=== PATIENT | female | born 1935 | race Caucasian/White ===

== ENCOUNTER 2019-02-17 08:30 | Day surgery (SDC) | payer MEDICARE, BC ==
[2019-02-17 09:04] LABS: Mean Platelet Volume 12.3
[2019-02-17 09:06] LABS: INR 0.9 (<1.2); Prothrombin Time 10.2 sec (9.0-12.0)
[2019-02-17 09:22] LABS: Platelet Count 37 k/uL (150-450)
[2019-02-17 10:05] VITALS: TEMP 97.6
--- NOTE | 2019-02-17 11:07 | US ---
ULTRASOUND GUIDED FNA THYROID BIOPSY: CLINICAL HISTORY: Left neck lymphadenopathy FINDINGS: The procedure was explained to the patient. The risks, complications, benefits and alternatives were discussed and any questions were answered. Informed consent was obtained. Patient was placed supin e on the ultrasound table and prepped and draped in the usual sterile fashion. Utilizing a 18-gauge core biopsy needle, five passes were made into the requested left neck lymph node. Patient was stable throughout the procedure. Pathology is pending. Note is made the patient had a lo w platelet count and received intravenous platelets before, during and after the procedure All elements of maximal barrier technique were utilized. IMPRESSION: 1. Successful ultrasound guided biopsy left neck lymphadenopathy.
[2019-02-17 11:35] VITALS: RESP 18
[2019-02-17 11:47] VITALS: BP 147/75; PULSE 67
== END 2019-02-17 11:51 | disposition home or self-care (01) ==
LOC: RADPROMAIN 08:30
PROVIDERS: ATTEND Internal Medicine Hematology & Oncology
DX: C91.10 Chronic lymphocytic leukemia of B-cell type not having achieved remission (principal); Z88.4 Allergy status to anesthetic agent
CPT/HCPCS: 88305; 85049; 85610; 88342; 88341; 76942; 38505; P9037

== ENCOUNTER → 2019-02-22 | Outpatient (CLI) | payer MEDICARE, BC ==
--- NOTE | 2019-02-22 11:35 | CT ---
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 CT DLP: 967mGycm Automated Exposure Control for Dose Reduction was Utilized. CONTRAST: CT scan of the abdomen and pelvis is performed with IV Contrast, patient injected with 100 ml mL of I sovue 300. COMPARISON: None. FINDINGS: LUNG BASES: There is 10 x 9 mm soft tissue nodule lower right thoracic subcutaneous fat on axial imag e 6 could reflect leukemia involvement. LIVER/GB: No significant abnormality is appreciated. PANCREAS: No significant abnormality is seen. SPLEEN: No significant abnormality is seen. ADRENALS: No significant abnormality is seen. KIDNEYS: There is symmetric cortical medullary uptake and excretion from both kidneys with mild bilat eral pyelocaliectasis likely from mass effect from adenopathy along course of ureters. BOWEL: No significant abnormality is seen. UTERUS/ADNEXA: No gross abnormality seen. LYMPH NODES: There are multiple enlarged lymph nodes throughout the abdomen and pelvis extending to b ilateral groin region predominantly in the retroperitoneum with some mesenteric involvement also iden tified. Some are confluent in appearance in both difficult to accurately measure. There is elevation of anterior displacement of the distal abdominal aorta before bifurcation. For reference left periaor tic lymph node measures 3.5 x 2.7 cm axial image 44. For reference left groin lymph node measures 2.2 x 1.5 cm axial image 80. For reference right external iliac chain lymph node measures 4.1 x 2.5 cm i mage 75. OSSEOUS STRUCTURES: Moderate multilevel spurring in the thoracolumbar spine. Posterior disc herniatio n effaces the anterior thecal sac L5-S1 level sagittal image 42. Facet arthropathy lower lumbar level s. Moderate to severe narrowing of both hip joints. OTHER: Mild to moderate calcified plaque of the aorta extends into branch vessels. IMPRESSION: Adenopathy or disease involvement below the diaphragm is present. No hepatosplenomegaly.
== END | disposition home or self-care (01) ==
LOC: RADCTMAIN 07:03
PROVIDERS: ATTEND Internal Medicine Hematology & Oncology
DX: C91.10 Chronic lymphocytic leukemia of B-cell type not having achieved remission (principal); Z88.4 Allergy status to anesthetic agent
CPT/HCPCS: 82565; 84520; 74177; 36415; Q9967

== ENCOUNTER 2021-12-17 15:00 | Emergency (ER) | payer MEDICARE, BC ==
[2021-12-17] MEDS ORDERED: ACETAMINOPHEN TAB 500 MG TAB PO STA (15:19)
--- NOTE | 2021-12-17 15:41 | XR ---
EXAMINATION TYPE: XR chest 2V DATE OF EXAM: 12/17/2021 COMPARISON: NONE HISTORY: Shortness of breath TECHNIQUE: Frontal and lateral views of the chest are obtained. FINDINGS: Scattered senescent parenchymal changes noted. Hyperinflation compatible with COPD. Reticulonodular prominence at the lung bases may reflect atypical pneumonia. Correlate clinically. Heart size is stable. Mediastinal structures are stable and grossly unremarkable. No evidence for hilar prominence. Degenerative changes dorsal spine. IMPRESSION: 1. Reticulonodular prominence at the lung bases may reflect atypical pneumonia. Correlate clinically.
[2021-12-17] MEDS ORDERED: SODIUM CHLORIDE 0.9% 500 ML 500 ML IV STA (15:49)
--- NOTE | 2021-12-17 16:10 | ED ---
General Adult HPI - General Chief complaint: Upper Respiratory Infection Stated complaint: Recieved Antibodies Fever Time Seen by Provider: 12/17/21 15:48 Source: patient Mode of arrival: wheelchair Limitations: no limitations - History of Present Illness Initial comments: Dictation was produced using [employer] dictation software. please excuse any gr ammatical, word or spelling errors. Chief Complaint: 86-year-old female presents emergency department for concerns of bacterial pneumonia History of Present Illness: Is 13-year-old female she was sent in from the infusion center just prior to arrival. Patient was at the infusion center receiving monoclonal antibodies to treat COVID-19. Patient's been symptomatic of COVID-19 for the last 4 days. She had a fever around the time the infusion. She was told by the infusion nurse to come to the ER to be evaluated for bacterial pneumonia. Patient states she's been having fevers, sore throat. She's been having coughing with production of yellow sputum. Patient denies any shortness of breath. She did receive her vaccines series with Covid booster. The ROS documented in this emergency department record has been reviewed and confirmed by me. Those systems with pertinent positive or negative responses have been documented in the HPI. All other systems are other negative and/or noncontributory. PHYSICAL EXAM: General Impression: Alert and oriented x3, not in acute distress HEENT: Normocephalic atraumatic, extra-ocular movements intact, pupils equal and reactive to light bilaterally, mucous membranes moist. Cardiovascular: Heart regular rate and rhythm Chest: Able to complete full sentences, no retractions, no tachypnea Abdomen: abdomen soft, non-tender, non-distended, no organomegaly Musculoskeletal: Pulses present and equal in all extremities, no peripheral e dora Motor: no focal deficits noted Neurological: CN II-XII grossly intact, no focal motor or sensory deficits noted Skin: Intact with no visualized rashes Psych: Normal affect and mood ED course: 86-year-old well-appearing female presents to the emergency department for concerns of bacterial pneumonia. She was sent in from infusion center to be evaluated. Vital signs upon arrival shows temperature 12.5, heart rate 1:30, rest of vital signs within acceptable limits. Patient's history of atrial fibrillation. Medications reviewed she is on rate controlling medications and and a coagulation medications. Laboratory evaluation obtained. Leukopenia of 2.9. No old labs for comparison. Coag panel is negative. Metabolic panel shows sodium 1:30. No lactic acidosis. Metabolic panel is otherwise unremarkable. Chest x-ray shows reticular nodular prominence concerning for atypical pneumonia. Patient observed in the emergency department for 2 hours. She is reevaluated bedside at 5:20 PM finally stable medical condition. Patient given Zithromax for very slight concern of superimposed bacterial pneumonia. Patient has multiple risk factors. Trial of antibiotics benefits outweigh the risk. Patient is agreeable for discharge with return precautions. Patient has an ap pointment with her oncologist in the near future. - Related Data Home Medications Medication Instructions Recorded Confirmed Calcium Carbonate [Calcium] 1 tab PO BID 02/09/19 12/17/21 Cholecalciferol [Vitamin D3 (25 1 tab PO DAILY 02/09/19 12/17/21 Mcg = 1000 Iu)] Fluticasone Propionate [Flonase 1 spray EA NOSTRIL DAILY PRN 02/09/19 12/17/21 Allergy Relief] Mometasone Inhalr 220 Mcg/Puff 1 puff INHALATION BID PRN 02/09/19 12/17/21 [Asmanex] Montelukast [Singulair] 10 mg PO DAILY 02/09/19 12/17/21 Pravastatin Sodium [Pravachol] 20 mg PO HS 02/09/19 12/17/21 Travoprost [Travatan Z 0.004%] 1 drop BOTH EYES DAILY 02/09/19 12/17/21 Acalabrutinib [Calquence] 100 mg PO DAILY 12/17/21 12/17/21 Acyclovir 400 mg PO BID 12/17/21 12/17/21 Albuterol Inhaler [Ventolin Hfa 1 puff INHALATION RT-TID PRN 12/17/21 12/17/21 Inhaler] Apixaban [Eliquis] 2.5 mg PO BID 12/17/21 12/17/21 Diltiazem 180 mg PO DAILY 12/17/21 12/17/21 Famotidine 40 mg PO HS 12/17/21 12/17/21 Magnesium 250 mg PO DAILY 12/17/21 12/17/21 Oxybutynin Chloride 5 mg PO DAILY 12/17/21 12/17/21 Tamsulosin HCl [Flomax] 0.4 mg PO DAILY 12/17/21 12/17/21 Previous Rx's Medication Instructions Recorded Azithromycin [Zithromax Z-pack] 0 mg PO DIRECTED #6 tab 12/17/21 Allergies Allergy/AdvReac Type Severity Reaction Status Date / Time amoxicillin AdvReac Rash/Hives Verified 12/17/21 15:17 novacaine AdvReac Unknown Uncoded 12/17/21 15:17 Review of Systems ROS Statement: Those systems with pertinent positive or pertinent negative responses have been documented in the HPI. ROS Other: All systems not noted in ROS Statement are negative. Past Medical History Past Medical History: Atrial Fibrillation, Cancer, COPD Additional Past Medical History / Comment(s): CLL/glaucoma History of Any Multi-Drug Resistant Organisms: None Reported Past Surgical History: Adenoidectomy, Orthopedic Surgery, Tonsillectomy Additional Past Surgical History / Comment(s): rt rotator cuff repair/part lt knee Past Anesthesia/Blood Transfusion Reactions: No Reported Reaction Past Psychological History: No Psychological Hx Reported Smoking Status: Never smoker Past Alcohol Use History: None Reported Past Drug Use History: None Reported General Exam Limitations: no limitations Course Vital Signs 12/17/21 12/17/21 12/17/21 15:12 16:22 17:28 Temperature 102.5 F H 101.6 F H 98.2 F Pulse Rate 130 H 110 H 104 H Respiratory 20 18 16 Rate Blood Pressure 103/67 104/58 123/63 O2 Sat by Pulse 95 93 L 95 Oximetry Medical Decision Making - Lab Data Result diagrams: 12/17/21 16:21 12/17/21 16:21 Lab Results 12/17/21 12/17/21 12/17/21 Range/Units 16:21 16:21 16:21 WBC 2.9 L (3.8-10.6) k/uL RBC 4.06 (3.80-5.40) m/uL Hgb 13.0 (11.4-16.0) gm/dL Hct 38.4 (34.0-46.0) % MCV 94.7 (80.0-100.0) fL MCH 32.0 (25.0-35.0) pg MCHC 33.9 (31.0-37.0) g/dL RDW 13.1 (11.5-15.5) % Plt Count 106 L (150-450) k/uL MPV 9.3 Neutrophils % (Manual) 74 % Band Neuts % (Manual) 1 % Lymphocytes % (Manual) 15 % Monocytes % (Manual) 10 % Neutrophils # (Manual) 2.10 (1.3-7.7) k/uL Lymphocytes # (Manual) 0.44 L (1.0-4.8) k/uL Monocytes # (Manual) 0.29 (0-1.0) k/uL Nucleated RBCs 0 (0-0) /100 WBC Manual Slide Review Performed RBC Morphology Normal PT 10.5 (9.0-12.0) sec INR 1.0 (<1.2) APTT 27.1 (22.0-30.0) sec Sodium 130 L (137-145) mmol/L Potassium 3.5 (3.5-5.1) mmol/L Chloride 100 (98-107) mmol/L Carbon Dioxide 24 (22-30) mmol/L Anion Gap 6 mmol/L BUN 14 (7-17) mg/dL Creatinine 0.86 (0.52-1.04) mg/dL Est GFR (CKD-EPI)AfAm 72 (>60 ml/min/1.73 sqM) Est GFR (CKD-EPI)NonAf 63 (>60 ml/min/1.73 sqM) Glucose 111 H (74-99) mg/dL Plasma Lactic Acid Abel (0.7-2.0) mmol/L Calcium 8.5 (8.4-10.2) mg/dL 12/17/21 Range/Units 16:21 WBC (3.8-10.6) k/uL RBC (3.80-5.40) m/uL Hgb (11.4-16.0) gm/dL Hct (34.0-46.0) % MCV (80.0-100.0) fL MCH (25.0-35.0) pg MCHC (31.0-37.0) g/dL RDW (11.5-15.5) % Plt Count (150-450) k/uL MPV Neutrophils % (Manual) % Band Neuts % (Manual) % Lymphocytes % (Manual) % Monocytes % (Manual) % Neutrophils # (Manual) (1.3-7.7) k/uL Lymphocytes # (Manual) (1.0-4.8) k/uL Monocytes # (Manual) (0-1.0) k/uL Nucleated RBCs (0-0) /100 WBC Manual Slide Review RBC Morphology PT (9.0-12.0) sec INR (<1.2) APTT (22.0-30.0) sec Sodium (137-145) mmol/L Potassium (3.5-5.1) mmol/L Chloride (98-107) mmol/L Carbon Dioxide (22-30) mmol/L Anion Gap mmol/L BUN (7-17) mg/dL Creatinine (0.52-1.04) mg/dL Est GFR (CKD-EPI)AfAm (>60 ml/min/1.73 sqM) Est GFR (CKD-EPI)NonAf (>60 ml/min/1.73 sqM) Glucose (74-99) mg/dL Plasma Lactic Acid Abel 0.5 L (0.7-2.0) mmol/L Calcium (8.4-10.2) mg/dL Disposition Clinical Impression: Coronavirus infection Disposition: HOME SELF-CARE Condition: Good Instructions (If sedation given, give patient instructions): Coronavirus Disease 2019 (COVID-19) Prescriptions: Azithromycin [Zithromax Z-pack] 0 mg PO DIRECTED #6 tab Is patient prescribed a controlled substance at d/c from ED?: No Referrals: Halima Carrasquillo DO [Primary Care Provider] - 1-2 days
[2021-12-17 16:39] LABS: HCT 38.4 % (34.0-46.0); MCHC 33.9 g/dL (31.0-37.0); MCV 94.7 fL (80.0-100.0); Mean Platelet Volume 9.3; Platelet Count 106 k/uL (150-450); RBC 4.06 m/uL (3.80-5.40); RDW 13.1 % (11.5-15.5); WBC 2.9 k/uL (3.8-10.6)
[2021-12-17 16:44] LABS: Partial Thromboplastin Time 27.1 sec (22.0-30.0); Prothrombin Time 10.5 sec (9.0-12.0)
[2021-12-17 16:54] LABS: Calcium 8.5 mg/dL (8.4-10.2); Potassium 3.5 mmol/L (3.5-5.1)
[2021-12-17 17:20] LABS: Band Neutrophils % 1 %; Lymphocytes # (M) 0.44 k/uL (1.0-4.8); Monocytes # (M) 0.29 k/uL (0-1.0); Neutrophils % (M) 74 %; Nucleated Red Blood Cells 0 /100 WBC (0-0); Total Cells Counted 100
[2021-12-17 17:21] LABS: RBC Morphology Normal
[2021-12-17 17:29] VITALS: BP 123/63; PULSE 104; RESP 16; TEMP 98.2
== END 2021-12-17 17:46 | disposition home or self-care (01) ==
LOC: EC 15:00
DX: U07.1 COVID-19 (principal); D72.819 Decreased white blood cell count, unspecified; I48.91 Unspecified atrial fibrillation; J44.9 Chronic obstructive pulmonary disease, unspecified; Z88.0 Allergy status to penicillin; Z79.51 Long term (current) use of inhaled steroids; Z88.4 Allergy status to anesthetic agent; Z79.899 Other long term (current) drug therapy
CPT/HCPCS: 36415; 71046; 80048; 83605; 85025; 85610; 85730; 87040; 99283

== ENCOUNTER → 2021-12-17 | Outpatient (CLI) | payer MEDICARE, BC ==
[~2021-12-17] MED LIST: BEBTELOVIMAB (EUA) 175 MG/2 ML VIAL IV NR; BEBTELOVIMAB (EUA) 175 MG/2 ML VIAL IV ONE
[2021-12-17 13:57] VITALS: BP 128/66
[2021-12-17 14:09] VITALS: PULSE 132; RESP 24; TEMP 102.9
== END | disposition home or self-care (01) ==
LOC: PROCWHC3 13:06
PROVIDERS: ATTEND Family Medicine
DX: U07.1 COVID-19 (principal)
CPT/HCPCS: 96374; Q0222; M0222

== ENCOUNTER → 2022-02-27 | Outpatient (CLI) | payer MEDICARE, BC ==
[~2022-02-27] MED LIST changes: -BEBTELOVIMAB (EUA) 175 MG/2 ML VIAL IV NR; -BEBTELOVIMAB (EUA) 175 MG/2 ML VIAL IV ONE; +TIXAGEVIMAB/CILGAVIMAB (EUA) 300 MG/3 ML COMBO.PKG IM NR
[2022-02-27 09:54] VITALS: RESP 16; TEMP 97.8
[2022-02-27 10:57] VITALS: BP 102/58; PULSE 94
== END ==
LOC: PROCWHC3 09:45
PROVIDERS: ATTEND Internal Medicine Hematology & Oncology
DX: Z23 Encounter for immunization (principal); Z88.4 Allergy status to anesthetic agent; Z88.1 Allergy status to other antibiotic agents
CPT/HCPCS: Q0220; M0220

== ENCOUNTER → 2022-11-26 | Outpatient (CLI) | payer MEDICARE, BC ==
--- NOTE | 2022-11-27 08:33 | MM ---
Reason for Exam: Screening (asymptomatic). Last mammogram was performed 4 year(s) and 1 month(s) ago. Patient History: Menarche at age 13. First Full-Term at age 24. Postmenopausal. Paternal grandmother had breast cancer. Risk Values: Palak 5 year model risk: 1.4%. NCI Lifetime model risk: 1.5%. Prior Study Comparison: 07/21/2016 Bilateral MG screening mammo w CAD - 2, [facility]. 03/05/2017 Bilateral MG 3D screening mammo w/cad, [facility]. 10/27/2018 Bilateral MG 3D screening mammo w/cad, [facility]. Tissue Density: There are scattered fibroglandular densities. Findings: Analyzed By CAD. There is no suspicious group of microcalcifications or new suspicious mass in either breast. Benign-appearing calcifications within both breasts. Overall Assessment: Benign, BI-RAD 2 Management: Screening Mammogram of both breasts in 1 year. A clinical breast exam by your physician is recommended on an annual basis and results should be correlated with mammographic findings. Electronically signed and approved by: Dante Joseph D.O.
== END | disposition home or self-care (01) ==
LOC: RADMAMWWP 10:49
PROVIDERS: ATTEND Obstetrics & Gynecology
DX: Z12.31 Encounter for screening mammogram for malignant neoplasm of breast (principal)
CPT/HCPCS: 77063; 77067

== ENCOUNTER → 2023-03-11 | Outpatient (CLI) | payer MEDICARE, BC ==
--- NOTE | 2023-03-11 19:33 | US ---
EXAMINATION TYPE: US kidneys/renal and bladder DATE OF EXAM: 03/11/2023 COMPARISON: CT 2018 CLINICAL INDICATION: Female, 87 years old with history of R31.1 MICROSCOPIC HEMATURIA; EXAM MEASUREMENTS: Right Kidney: 9.2 x 3.4 x 4.9 cm Left Kidney: 9.3 x 5.2 x 4.4 cm Right Kidney: There is an extrarenal pelvis. No calyceal dilatation to suggest hydronephrosis. Left Kidney: visualized portions wnl, inferior wnle limited by overlying byesl gas. No hydronephrosis . Bladder: wnl Bilateral Jets seen: yes IMPRESSION: No hydronephrosis. 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
== END | disposition home or self-care (01) ==
LOC: RADUSWWP 15:00
PROVIDERS: ATTEND Urology
DX: R31.1 Benign essential microscopic hematuria (principal)
CPT/HCPCS: 76770

== ENCOUNTER → 2024-02-22 | Outpatient (CLI) | payer MEDICARE, BC | LOC: CPPFTMAIN 10:32 | PROVIDERS: ATTEND Internal Medicine | DX: J84.9 Interstitial pulmonary disease, unspecified (principal); Z88.0 Allergy status to penicillin; Z88.8 Allergy status to other drugs, medicaments and biological substances | CPT/HCPCS: 94060; 94726; 94729 ==

== ENCOUNTER → 2024-08-22 | Outpatient (CLI) | payer MEDICARE, BC | LOC: CPPFTMAIN 08:05 | PROVIDERS: ATTEND Internal Medicine | DX: J84.9 Interstitial pulmonary disease, unspecified (principal); Z88.0 Allergy status to penicillin; Z88.8 Allergy status to other drugs, medicaments and biological substances | CPT/HCPCS: 94060; 94726; 94729 ==